=== PATIENT | female | born 1995 | race Caucasian/White ===

== ENCOUNTER 2020-10-05 06:39 | Inpatient (IN) | payer MEDICAID, SELFPAY ==
[2020-10-05 07:13] VITALS: BP 104/72; PULSE 128; RESP 18; TEMP 37.2; O2SAT 98; BMI 23.3
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
[2020-10-05 07:57] LABS: Basophils # 0.1 10^3/uL (0.0-0.1); Basophils % 0.8 %; Eosinophils # 0.1 10^3/uL (0.0-0.8); Eosinophils % 1.3 %; Hematocrit 44.4 % (37.0-47.0); Hemoglobin 15.1 g/dL (11.5-15.3); Lymphocytes # 2.3 10^3/uL (0.8-4.8); Lymphocytes % 27.9 %; Mean Corpuscular Hemoglobin 30.4 pg (28.0-34.0); Mean Corpuscular Volume 89.3 fL (81-99); Mean Platelet Volume 9.5 fL (7.4-10.4); Monocytes # 0.5 10^3/uL (0.2-0.9); Monocytes % 5.6 %; Neutrophils # 5.25 10^3/uL (1.8-7.7); Neutrophils % 63.8 %; Nucleated Red Blood Cells % 0 %; Platelet Count 273 10^3/cmm (130-400); Red Blood Count 4.97 10^6/uL (4.1-5.3); Red Cell Distribution Width 12.1 % (12.1-15.1); White Blood Count 8.2 10^3/uL (4.0-10.0)
[2020-10-05 08:09] LABS: HCG, Serum Qual Negative (Negative)
[2020-10-05 08:15] LABS: Alanine Aminotransferase 12 U/L (0-33); Alcohol Level 237 mg/dL (0-10); Alkaline Phosphatase 96 IU/L (35-105); Anion Gap 18.8 (5-19); Aspartate Amino Transferase 17 U/L (0-32); Blood Urea Nitrogen 4 mg/dL (6-20); Calcium 8.6 mg/dL (8.5-10.5); Carbon Dioxide 21 mmol/L (22-29); Chloride 108 mmol/L (98-107); Globulin 2.4 g/dL (1.3-4.6); Glomerular Filtration Rate 123.9 mL/min (90-130); Glucose 103 mg/dL (65-115); Osmolality Calculated 295 mOsm/kg (285-295); Potassium 3.8 mmol/L (3.5-5.1); Sodium 144 mmol/L (136-145); Total Bilirubin 0.2 mg/dL (0.15-1.2); Total Protein 7.4 g/dL (6.6-8.7)
[2020-10-05 08:16] LABS: Acetaminophen < 5.0 ug/mL (10-30); Salicylate < 0.3 mg/dL (3-10)
[2020-10-05] MEDS: acetaminophen 325 mg Tablet 650 MG PO ×2 (08:19→21:32)
[2020-10-05 08:20] LABS: Amphetamines Screen Urine Negative (Negative); Barbiturates Screen Urine Negative (Negative); Benzodiazepines Screen Urine Negative (Negative); Cocaine Screen Urine Negative (Negative); Opiate Screen Urine Negative (Negative); PCP Screen Urine Negative (Negative); THC Screen Urine Positive (Negative)
[2020-10-05 08:39] VITALS: BP 112/84; PULSE 111; O2SAT 96
[2020-10-05 10:05] VITALS: BP 120/82; PULSE 106; RESP 18; TEMP 36.8; O2SAT 96
--- NOTE | 2020-10-05 11:44 | PM.NHP ---
Providers/Chief Complaint Admitting Physician: Babatunde Godfrey MD Chief Complaint: DEPRESSION HPI NPU History of Present Illness Nati Cedillo is a 25 year old female Meds NPU Home Medications Medication Instructions Recorded Confirmed Last Taken Type examuoh-mrdzomhqtdkom-jxubbaox 2 tab PO PRN 10/05/20 10/05/20 Unknown History [Excedrin Migraine] Allergies Allergy/AdvReac Type Severity Reaction Status Date / Time nickel Allergy Intermediate rash Verified 10/05/20 07:49 PFSH NPU PFSH: Social History (Updated 08/12/20 @ 11:23 by Patrica Hammer LPN) Smoking and tobacco status: current every day smoker Vitals/I&O/Wt Last Vital Signs Temp 98.2 F 10/05/20 10:05 Pulse 106 H 10/05/20 10:05 Resp 18 10/05/20 10:05 BP 120/82 10/05/20 10:05 Pulse Ox 96 10/05/20 10:05 Weight last 48 hrs Weight 63.503 kg Data NPU : 10/05/20 07:29 10/05/20 07:29 Involuntary Hold Information 96 Hour Hold: 96 Hour Involuntary Admission: No Coding Level of Care Code Acute Occupational Health Nurse Supervisor for Morris Olivier
[2020-10-05 14:00] VITALS: TEMP 36.8
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
[2020-10-05] MEDS: sertraline 50 mg Tablet PO (17:12)
[2020-10-05 20:14] VITALS: BP 92/60; PULSE 81; RESP 18; TEMP 37.1; O2SAT 98
--- NOTE | 2020-10-05 21:35 | PC.NURSE ---
Patient requested Vistaril to help with anxiety. 50mg Vistaril PO given.
[2020-10-06 06:00] VITALS: BP 95/56; PULSE 63; RESP 16; TEMP 36.5; O2SAT 98
[2020-10-06] MEDS: folic acid 1 mg Tablet PO (08:48)
[2020-10-06] MEDS: thiamine 100 mg Tablet PO (08:48)
[2020-10-06] MEDS: sertraline 50 mg Tablet PO (08:48)
[2020-10-06] MEDS: multivitamin therapeutic Tablet 1 TAB PO (08:48)
--- NOTE | 2020-10-06 10:24 | PC.RESP ---
Smoking Cessation information sent to patient.
[2020-10-06 14:00] VITALS: BP 110/73; PULSE 68; RESP 16; TEMP 36.7; O2SAT 99
--- NOTE | 2020-10-06 14:18 | PM.NPN ---
Subjective NPU Subjective: Interval history: Patient says she is doing better today. She says she is not hearing her name being called nor is she seeing shadows. She says, I can think straight, not cloudy like it usually is. She says she is not thinking about the worst possible outcome. Instead she is looking for bright thoughts. She slept pretty good, is hungry, has low to decent energy, and more motivation than yesterday. She is also more hopeful. She denies alcohol cravings. She says she would drink to get rid of the voices and other bad thoughts. Now that there improved, she does not feel the need to drink. She denies suicidal ideation. Mental Status Exam MSE Comments: I met with the patient in the day room, where she was watching a [employer] movie. She is cooperative and eye contact is good. She is alert, attentive, and helpful. No psychomotor agitation or retardation. Mood is improved. Affect is brighter. Thought process is logical and goal-directed. Thought content: She denies suicidal and homicidal ideation. She denies auditory and visual hallucinations. No delusions are noted. Insight and judgment are improving. Impulse control is likely better too. Vitals/I&O/Wt Last Vital Signs Temp 97.9 F 10/07/20 14:00 Pulse 61 10/07/20 14:00 Resp 18 10/07/20 14:00 BP 109/72 10/07/20 14:00 Pulse Ox 98 10/07/20 14:00 Data NPU : 10/05/20 07:29 10/05/20 07:29 A&P Assessment and plan (1) Major psychotic depression, recurrent: Status: Acute (2) Suicidal ideation: Status: Acute (3) Acute alcohol intoxication: Status: Acute Qualifiers: Complication of substance-induced condition: uncomplicated Qualified Code(s): F10.920 - Alcohol use, unspecified with intoxication, uncomplicated (4) Alcohol use disorder, mild, abuse: Status: Acute Additional A&P Information This is a 25-year-old white with a 3-year history of depression, treated only with psychotherapy, which has not been that helpful. Depression is complicated by recent heavy alcohol use. 1. Start Zoloft 50 mg daily for depression. Patient understands risks, benefits, side effects, and alternatives and gives consent. 2. Continue every 15-minute checks for safety. 3. Encourage individual, group and milieu therapies. 4. Encourage sober living treatment after discharge at the highest level of care to which she is willing to commit. 5. [facility] protocol for alcohol withdrawal symptoms. Involuntary Hold Information 96 Hour Hold: 96 Hour Involuntary Admission: No Attestations NPU Medical Necessity Statement*: Psychiatric hospitalization is medically and has access to lethal means, for initiation of medication treatment, and for coordination for safe discharge. Patient will be in the hospital for over 2 midnights. Likely length of stay 2 to 4 days. Coding Level of Care Code Acute Dredge Pump Operator for Morris Zarated Diagnoses Major psychotic depression, recurrent F33.3 Suicidal ideation R45.851 Acute alcohol intoxication F10.920 Complication of substance-induced condition: uncomplicated Alcohol use disorder, mild, abuse F10.10
[2020-10-06] MEDS: ibuprofen 600 mg Tablet PO (14:41)
--- NOTE | 2020-10-06 14:44 | PC.NURSE ---
prn administered motrin 600mg for hand pain in pt. will continue to monitor.
[2020-10-06 22:00] VITALS: BP 119/83; PULSE 69; RESP 18; TEMP 36.8; O2SAT 98
[2020-10-06] MEDS: acetaminophen 325 mg Tablet 650 MG PO (22:03)
[2020-10-06] MEDS: hyDROXYzine 25 mg Capsule 50 MG PO (22:05)
[2020-10-07 06:00] VITALS: BP 103/69; PULSE 58; RESP 16; TEMP 36.9; O2SAT 98
[2020-10-07] MEDS: folic acid 1 mg Tablet PO (08:50)
[2020-10-07] MEDS: multivitamin therapeutic Tablet 1 TAB PO (08:50)
[2020-10-07] MEDS: sertraline 50 mg Tablet PO (08:50)
[2020-10-07] MEDS: thiamine 100 mg Tablet PO (08:50)
--- NOTE | 2020-10-07 13:25 | P.PN_ITS ---
Subjective NPU Subjective: Interval history: I met with the patient on the bench by the nurses station. She reports doing better. Her mood is improved and she says, I want to be alive. On the other hand, she did not get much sleep last night because her back was hurting, which is a chronic condition for her. Appetite is good, energy fair, motivation is low. But she is hopeful about the future. She denies auditory and visual hallucinations. No wish to or kill herself. She says that the Zoloft is causing a side effect, but she cannot describe it in words. It is tolerable at this point. Mental Status Exam MSE Comments: The patient is wearing hospital scrubs, makes good eye contact, and is cooperative. There is no psychomotor agitation or retardation. Speech is at a regular rate and rhythm. She is alert and oriented to person and situation. Attention is intact to exam. Memory is adequate for the exam. Mood is improved, and affect is somewhat irritable, due to her poor sleep last night. Thought process is logical and goal-directed. Thought content: She denies auditory visual hallucinations. There are no delusions noted. She has no suicidal or homicidal ideation. Insight and judgment are improving. Vitals/I&O/Wt Last Vital Signs Temp 97.9 F 10/07/20 14:00 Pulse 61 10/07/20 14:00 Resp 18 10/07/20 14:00 BP 109/72 10/07/20 14:00 Pulse Ox 98 10/07/20 14:00 Data NPU : 10/05/20 07:29 10/05/20 07:29 A&P Additional A&P Information Assessment and plan (1) Major psychotic depression, recurrent: (2) Suicidal ideation: (3) Acute alcohol intoxication: (4) Alcohol use disorder, mild, abuse: This is a 25-year-old white with a 3-year history of depression, treated only with psychotherapy, which has not been that helpful. Depression is complicated by recent heavy alcohol use. 1. Started Zoloft 50 mg daily for depression. No side effects. She feels it is helping already. 2. Continue every 15-minute checks for safety. 3. Encourage individual, group and milieu therapies. 4. Encourage sober living treatment after discharge at the highest level of care to which she is willing to commit. 5. CIWA protocol for alcohol withdrawal symptoms. No withdrawal symptoms. Involuntary Hold Information 96 Hour Hold: 96 Hour Involuntary Admission: No Attestations NPU Medical Necessity Statement*: Psychiatric hospitalization is medically and has access to lethal means, for initiation of medication treatment, and for coordination for safe discharge. Patient will be in the hospital for over 2 midnights. Likely length of stay 2 to 3 days. Coding Level of Care Code Acute Sweatband Separator for Morris Olivier
[2020-10-07 14:00] VITALS: BP 109/72; PULSE 61; RESP 18; TEMP 36.6; O2SAT 98
[2020-10-07 20:52] VITALS: BP 116/78; PULSE 80; RESP 16; TEMP 37.3; O2SAT 98
[2020-10-07] MEDS: ibuprofen 600 mg Tablet PO (20:54)
[2020-10-07] MEDS: trazodone 50 mg Tablet PO (20:55)
[2020-10-07] MEDS: hyDROXYzine 25 mg Capsule 50 MG PO (20:55)
--- NOTE | 2020-10-07 22:00 | PC.NURSE ---
Trazodone 50 mg and Vistaril 50 mg given for sleep and anxiety.
[2020-10-08 06:00] VITALS: BP 94/61; PULSE 89; RESP 15; TEMP 36.8; O2SAT 98
[2020-10-08] MEDS: thiamine 100 mg Tablet PO (08:05)
[2020-10-08] MEDS: folic acid 1 mg Tablet PO (08:05)
[2020-10-08] MEDS: sertraline 50 mg Tablet PO (08:05)
[2020-10-08] MEDS: multivitamin therapeutic Tablet 1 TAB PO (08:05)
[2020-10-08 14:00] VITALS: BP 92/63; PULSE 77; RESP 16; TEMP 36.7; O2SAT 98
--- NOTE | 2020-10-08 14:52 | PM.NPN ---
Subjective NPU Subjective: Interval history: I met with the patient in her room. She says she is finally beginning to feel like her old self. Mood is improved, and she denies feeling depressed or worried at this point. Her energy has not recovered yet, and is still described as fair. She does have more hope, and is looking forward to doing [id number] shopping for her son this coming weekend. She denies auditory and visual hallucinations. She denies suicidal and homicidal ideation. She has no alcohol cravings. She has no side effects from the new medication. Mental Status Exam MSE Comments: The patient is sitting in her bed, and makes good eye contact. She is cooperative. There is no psychomotor agitation or retardation. Speech is at a regular rate and rhythm. She is alert and oriented to person and situation. Attention is intact to exam. Memory is adequate for the exam. Mood is improved, and affect is brighter today. Thought process is logical and goal-directed. Thought content: She denies auditory visual hallucinations. There are no delusions noted. She has no suicidal or homicidal ideation. Insight and judgment are improving. Vitals/I&O/Wt Last Vital Signs Temp 98.0 F 10/08/20 14:00 Pulse 77 10/08/20 14:00 Resp 16 10/08/20 14:00 BP 92/63 10/08/20 14:00 Pulse Ox 98 10/08/20 14:00 Weight last 48 hrs Weight 63.503 kg Data NPU : 10/05/20 07:29 10/05/20 07:29 A&P Assessment and plan (1) Major psychotic depression, recurrent: Status: Acute (2) Alcohol use disorder, mild, abuse: Status: Acute (3) Suicidal ideation: Status: Acute (4) Acute alcohol intoxication: Status: Acute Qualifiers: Complication of substance-induced condition: uncomplicated Qualified Code(s): F10.920 - Alcohol use, unspecified with intoxication, uncomplicated Additional A&P Information This is a 25-year-old white with a 3-year history of depression, treated only with psychotherapy, which has not been that helpful. Depression is complicated by recent heavy alcohol use. 1. Started Zoloft 50 mg daily for depression. No side effects. She feels it is helping already. 2. Continue every 15-minute checks for safety. 3. Encourage individual, group and milieu therapies. 4. Encourage sober living treatment after discharge at the highest level of care to which she is willing to commit. 5. We have discontinued the CISC protocol. Involuntary Hold Information 96 Hour Hold: 96 Hour Involuntary Admission: No Attestations NPU Medical Necessity Statement*: Psychiatric hospitalization is medically and has access to lethal means, for initiation of medication treatment, and for coordination for safe discharge. Likely length of stay 1-2 days. Coding Level of Care Code Acute Typewriters Functional Tester for Morris Olivier Diagnoses Major psychotic depression, recurrent F33.3 Alcohol use disorder, mild, abuse F10.10 Suicidal ideation R45.851 Acute alcohol intoxication F10.920 Complication of substance-induced condition: uncomplicated
[2020-10-08] MEDS: acetaminophen 325 mg Tablet 650 MG PO (21:14)
[2020-10-08 22:00] VITALS: BP 108/69; PULSE 80; RESP 16; TEMP 36.4; O2SAT 98
[2020-10-09 06:00] VITALS: BP 102/69; PULSE 84; RESP 18; TEMP 36.8; O2SAT 98
[2020-10-09] MEDS: multivitamin therapeutic Tablet 1 TAB PO (08:04)
[2020-10-09] MEDS: thiamine 100 mg Tablet PO (08:04)
[2020-10-09] MEDS: folic acid 1 mg Tablet PO (08:04)
[2020-10-09] MEDS: sertraline 50 mg Tablet PO (08:04)
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
[2020-10-09 11:56] VITALS: BP 102/69; PULSE 84; RESP 18; TEMP 36.8; O2SAT 98
[2020-10-09 11:57] VITALS: BP 102/69; PULSE 84; RESP 18; TEMP 36.8; O2SAT 98
== END 2020-10-09 13:43 | disposition home or self-care (01) | DRG 885 ==
LOC: ER 08:44 → NP 09:15
PROVIDERS: Admitting Provider Psychiatry & Neurology Child & Adolescent Psychiatry; Emergency Provider Physician Assistant; Visit Provider Psychiatry & Neurology Child & Adolescent Psychiatry
DX: F33.9 Major depressive disorder, recurrent, unspecified (principal); R45.851 Suicidal ideations; F10.129 Alcohol abuse with intoxication, unspecified; F17.210 Nicotine dependence, cigarettes, uncomplicated; F12.10 Cannabis abuse, uncomplicated; Z81.8 Family history of other mental and behavioral disorders; Z56.0 Unemployment, unspecified; Z91.5 Personal history of self-harm
CPT/HCPCS: 73130; 80053; 80306; 80307; 84703; 85025; 99285

== ENCOUNTER → 2020-10-16 10:27 | Outpatient (BNVA) | payer MEDICAID, SELFPAY | PROVIDERS: Visit Provider Family Medicine | DX: M79.641 Pain in right hand (principal) | CPT/HCPCS: 73130 ==

== ENCOUNTER 2020-12-14 13:55 | Outpatient (CLI) | payer MEDICAID, SELFPAY ==
--- NOTE | 2020-12-14 14:02 | US_ITS ---
WS: [id number] ULTRASOUND PELVIS TECHNIQUE: Transvaginal. CLINICAL INFORMATION: PELVIC PAIN LMP: ? : No. COMPARISON: None. FINDINGS: Heterogeneous uterus Orientation: Retroflexed Size: 7.4 x 4.1 x 5.7 cm Masses: None. Cervix: Small amount of fluid or thickening along the endocervical canal Endometrium: Normal. Endometrium thickness: 0.15 cm. Adnexa: Multifollicular ovaries bilaterally. Right ovary size: 2.9 x 1.6 x 2.0 cm. Left ovary size: 3.3 x 1.4 x 2.2 cm. Free fluid: Trace Other findings: None. US/US transvaginal [id number] IMPRESSION: 1. Slightly heterogeneous retroflexed uterus with normal thickness endometrium . Heterogeneity can be seen with adenomyosis. 2. Endometrium measures 1.5 mm 3. Small amount of fluid or thickening along the endocervical canal 4. Ovaries are normal appearance. Normal vascularity. 5. Trace free fluid in the cul-de-sac.
== END 2020-12-14 13:56 | disposition home or self-care (01) ==
PROVIDERS: PCP Nurse Practitioner Family; Visit Provider Nurse Practitioner Family
DX: R10.2 Pelvic and perineal pain (principal)
CPT/HCPCS: 76830

== ENCOUNTER 2021-07-08 01:16 | Emergency (ER) | payer MEDICAID, SELFPAY ==
[2021-07-08 01:17] VITALS: BP 124/74; PULSE 74; RESP 18; TEMP 36.9; O2SAT 98; BMI 25.0
--- NOTE | 2021-07-08 01:57 | PC.NURSE ---
pt yelling wheres the doctor?whens he coming? pt put on her shoes and said she was leaving when doctor entered room
[2021-07-08 02:02] LABS: HCG Qualitative Urine. Negative (Negative)
--- NOTE | 2021-07-08 02:07 | ED.C_ITS ---
HPI - Psych General: Chief Complaint: Psychiatric Symptoms Stated Complaint: Depression Time Seen by Provider: 07/08/21 01:24 Source: patient History of Present Illness: Nati is a 26-year-old female with a history of depression. She notes she was placed on Latuda somewhat recently for depression which seemed to be helping. She notes the past couple of days she has felt more depressed. She is down because she does not have any friends she says. She roldan s not have anyone to talk to. She does not want to go to the neuropsychiatric unit, and she does not want to disappoint her mom. She made several abrasions to her right lateral thigh tonight. She has done this before. She maintains that this was not a suicide attempt at all. She was not having suicidal thoughts. She was doing this to distract herself from the pain of her depression. She notes that she only wants her thigh taken care of, and to go home. She admits to having 1 drink tonight, that may have worsened her depression. She denies hearing voices currently. She does not believe that her mother wants her to be hospitalized for depression either. She says her tetanus is up-to-date. MD complaint: feels depressed Onset (ago): day(s) Duration: constant History of same: Yes Relieving factors: none Exacerbating factors: alcohol Context: recent alcohol abuse (She only admits to 1 drink.) Associated psychiatric symptoms: depression Associated symptoms: Reports depression; Deny auditory hallucinations, visual hallucinations, homicidal ideation or suicidal ideation Treatments prior to arrival: none If self harm: admits thoughts of self harm (Only cutting) Review of Systems Const: Denies: fever(s) Eyes: Denies: change in vision ENMT: Denies: throat pain Card: Denies: chest pain or palpitations Resp: Denies: dyspnea, productive cough or non-productive cough GI: Denies: abdominal pain, vomiting or diarrhea Psych: Reports: anxiety and depression; Denies: visual hallucinations, auditory hallucinations, suicidal ideation or homicidal ideation [facility] ED PFSH: Social History Smoking and tobacco status: current every day smoker Alcohol intake: current Alcohol intake frequency: few times a month Alcohol type: beer, wine and hard liquor Last alcohol use date: 02/03/21 Lives independently: No Household members: family Marital status: Single Number of children: 1 service: No Current occupational status: unemployed Current gender identity: Female Special monique needs: No Physical Exam Const: GENERAL APPEARANCE: cooperative and well kempt HENMT: COMMON NORMALS: normocephalic, atraumatic and Normal external nose present HEAD & SCALP: normocephalic and atraumatic FACE & SINUS: normal facial exam and face symmetric NOSE: Normal external nose present and Normal nares present Eye: COMMON NORMALS: Equal, round and reactive pupils present and EOMs intact bilaterally PUPIL: Yes Equal, round and reactive pupils present Chest: COMMONS NORMALS: normal inspection of the chest Resp: COMMON NORMALS: normal respiratory effort, No use of accessory muscles and clear to auscultation bilaterally AUSCULTATION: clear to auscultation bilaterally Cardio: COMMON NORMALS: regular rate and regular rhythm RATE: regular rate RHYTHM: regular rhythm GI: COMMON NORMALS: Normal to inspection, nondistended, normoactive bowel sounds present Neuro: BRUCE COMA SCALE: document GCS findings [place] coma scale eye opening: Spontaneous Bruce coma scale verbal response: Orientated Bruce coma scale motor response: Obey commands Bruce coma scale total score: 15 SPEECH: speech normal Psych: COMMON NORMALS: Normal thought process present, cooperative and speech normal APPEARANCE: Yes well kempt ATTITUDE: Yes agitated (Initially, then improved) ACTIVITY/MOTOR BEHAVIOR: Yes appropriate eye contact SPEECH: Yes normal speech MOOD & AFFECT: Yes depressed mood and Yes Labile affect present (Initially then flow) THOUGHT PROCESS: Normal thought process present THOUGHT CONTENT: No Suicidality present, No Homicidality present and No Hallucination(s) present ATTENTION/CONCENTRATION: Yes attention grossly intact and Yes concentration grossly intact MEMORY/COGNITION: Yes memory grossly intact and Yes cognition grossly intact INSIGHT: Fair insight present (Psych) JUDGEMENT: Fair judgement present (Psych) Skin: NARRATIVE SKIN EXAM: Exam of the right thigh reveals roughly 16 linear abrasions over the lateral aspect. They are free of erythema, streaking, or drainage. There are 2 superficial for suturing. Course Vital Signs: Vital signs: Vital Signs Temperature 98.4 F 07/08/21 01:17 Pulse Rate 74 07/08/21 01:17 Respiratory Rate 18 07/08/21 01:17 Blood Pressure 124/74 07/08/21 01:17 Pulse Oximetry 98 07/08/21 01:17 [facility] - Psych Medical Decision Making 26-year-old female who maintains that she is not suicidal. She is not homicidal. She asks if she can please go home. She notes that her mother will help care for her and keep her safe. She has abraded her own right lateral thigh, as a distraction from pain and depression. She is rational. She promises me, that she will not commit further self-harm, that she is not having suicidal thoughts, that she is not hearing voices or seeing objects, and that she will seek outpatient follow-up. Her wounds are cleaned and dressed. She will be allowed discharge to the care of her mother, provided her mother is responsible to do so. Lab Data Laboratory Results HCG, Qual Negative (Negative) 07/08/21 01:45 Urine Color Yellow (Yellow) 07/08/21 01:45 Urine Appearance Clear (CLEAR) 07/08/21 01:45 Urine pH 7 (5-7) 07/08/21 01:45 Ur Specific [place] 1.005 (1.005-1.030) 07/08/21 01:45 Urine Protein Neg (Negative) 07/08/21 01:45 Urine Glucose (UA) Norm (Normal) 07/08/21 01:45 Urine Ketones Negative (Negative) 07/08/21 01:45 Urine Blood Neg (Negative) 07/08/21 01:45 Urine Nitrate Negative (Negative) 07/08/21 01:45 Urine Bilirubin Neg (Negative) 07/08/21 01:45 Urine Urobilinogen Norm mg/dL (Negative) 07/08/21 01:45 Ur Leukocyte Esterase Negative (Negative) 07/08/21 01:45 Urine Opiates Screen Negative ng/mL (Negative) 07/08/21 01:45 Ur Barbiturates Screen Negative ng/mL (Negative) 07/08/21 01:45 Ur Phencyclidine Scrn Negative ng/mL (Negative) 07/08/21 01:45 Ur Amphetamines Screen Negative ng/mL (Negative) 07/08/21 01:45 U Benzodiazepines Scrn Negative ng/mL (Negative) 07/08/21 01:45 Urine Cocaine Screen Negative ng/mL (Negative) 07/08/21 01:45 U Marijuana (THC) Screen Positive ng/mL (Negative) H 07/08/21 01:45 Discharge Plan Discharge Patient Disposition: Home Clinical Impression: Abrasion of right thigh Condition: Stable Prescriptions: No Action temazepam [Restoril] 30 mg capsule 30 mg PO .qhs Qty: 30 2RF escitalopram oxalate [Lexapro] 20 mg tablet 20 mg PO DAILY Qty: 30 3RF cephalexin 500 mg capsule 500 mg PO TID 10 Days Qty: 30 0RF Latuda 40 mg tablet 40 mg PO DAILY Qty: 30 3RF Rx Instructions: must administer with food (at least 350 calories) Excedrin Migraine 250-250-65 mg Tablet 2 tab PO PRN 0RF Discharge Orders: Discharge ED (Routine); Ordered 07/08/21 Ordered By: Cheikh Riddle Referrals: Lakeshia Lee FNP [Primary Care Provider] - 1-3 days Discharge Diet: Advance as tolerated Discharge Activity: Increase activity as tolerated Activity Restrictions/Additional Instructions: Please return immediately to the emergency room for any thoughts or wishes to harm your self or anyone else. Please follow-up with your doctor by phone on Friday, and let them know you were seen in the emergency department. They may wish further treatment for you. A case management order has been placed for you to receive follow-up with behavioral health care. Coding Level of Care Code ED Product Introduction Manager for Morris Olivier Exam Comprehensive
[2021-07-08] MEDS: LORazepam 1 mg Tablet PO (02:27)
[2021-07-08] MEDS: neomycin-poly-bacitracin oint 0.9 gm Pkt 3 APPLIC TOPICAL (02:27)
--- NOTE | 2021-07-08 02:38 | PC.NURSE ---
12 superficial scratches that were self inflicted cleaned and neosporin telfa wrapped with kerlix,pt tolerated well
[2021-07-08 02:47] LABS: Add Urine Microscopic? NO; Charge for UA Resulting for Rev
[2021-07-08 02:58] LABS: Amphetamines Screen Urine Negative (Negative); Barbiturates Screen Urine Negative (Negative); Benzodiazepines Screen Urine Negative (Negative); Cocaine Screen Urine Negative (Negative); Opiate Screen Urine Negative (Negative); PCP Screen Urine Negative (Negative); THC Screen Urine Positive (Negative)
[2021-07-08 03:00] LABS: Bilirubin Urine Neg (Negative); Blood Urine Neg (Negative); Glucose Urine UA Norm (Normal); Ketones Urine Negative (Negative); Leukocyte Esterase Urine Negative (Negative); Nitrate Urine Negative (Negative); Protein Urine Neg (Negative); Specific Gravity, Urine 1.005 (1.005-1.030); Urine Appearance Clear (CLEAR); Urine Color Yellow (Yellow); Urobilinogen Urine Norm (Negative); pH Urine 7 (5-7)
--- NOTE | 2021-07-08 03:10 | PC.NURSE ---
mom her to knot picker cloth pt. mom verbalized understanding of standing of staying with patient and keeping her safe, pt continues to deny she is SI
--- NOTE | 2021-07-10 16:03 | DCPLANNER ---
dice manager had message to speak with patient about getting services at [facility]. dice manager called patient at [phone], unable to speak with patient at this time and unable to leave a voicemail for patient. Voicemail box is not set up.
== END 2021-07-08 03:14 | disposition home or self-care (01) ==
PROVIDERS: Emergency Provider Emergency Medicine; PCP Nurse Practitioner Family
DX: S70.311A Abrasion, right thigh, initial encounter (principal); X78.9XXA Intentional self-harm by unspecified sharp object, initial encounter; F17.200 Nicotine dependence, unspecified, uncomplicated
CPT/HCPCS: 80306; 81003; 81025; 99283

== ENCOUNTER → 2021-08-23 12:29 | Outpatient (BNVA) | payer OTHER, SELFPAY | PROVIDERS: PCP Nurse Practitioner Family; Visit Provider Counselor Mental Health | DX: F10.10 Alcohol abuse, uncomplicated (principal); F33.3 Major depressive disorder, recurrent, severe with psychotic symptoms | CPT/HCPCS: 90832 ==

== ENCOUNTER 2022-10-21 09:14 | Outpatient (CLI) | payer MEDICAID, SELFPAY ==
--- NOTE | 2022-10-21 09:19 | MR_ITS ---
WS: [id number] MRI HEAD WITHOUT CONTRAST TECHNIQUE: Sagittal T1, T2 axial, T2 axial FLAIR, axial and coronal T1 images, axial susceptibility w eighted imaging, axial diffusion weighted images, and coronal T2 images were obtained. CLINICAL INFORMATION: ABNORMAL PROLACTIN COMPARISON: CT head 2019 FINDINGS: No evidence of restricted diffusion to suggest acute ischemia. Ventricular system and basal cisterns are patent. No suspicious intracranial signal normalities. Normal posterior fossa. Normal vascular fl ow voids at the skull base. No extra-axial fluid collections. No evidence of mass or mass effect. Par anasal sinuses and mastoid air cells are well aerated. Normal posterior nasopharynx. Visualized orbit s appear normal. No hemosiderin on susceptibility weighted images. Normal optic chiasm and pituitary infundibulum. Tem poral lobes and hippocampal formations are normal in appearance. Normal visualized pituitary. No evid ence of suprasellar mass. IMPRESSION: 1. No evidence of restricted diffusion to suggest acute ischemia. 2. No suspicious intracranial signal normalities. 3. No extra-axial fluid collections. No evidence of mass or mass effect. 4. Normal optic chiasm and pituitary infundibulum. No evidence of suprasellar mass. 5. No hemosiderin on the susceptibly weighted images. If continued concern regarding pituitary microadenoma, recommend MRI of the head without and with nikita olinium enhancement with pituitary protocol and dynamic pituitary imaging
== END 2022-10-21 09:15 | disposition home or self-care (01) ==
PROVIDERS: PCP Nurse Practitioner Family; Visit Provider Nurse Practitioner Family
DX: R94.7 Abnormal results of other endocrine function studies (principal)
CPT/HCPCS: 70551

== ENCOUNTER → 2024-02-20 16:19 | Outpatient (BNVA) | payer MEDICAID, SELFPAY | PROVIDERS: PCP Nurse Practitioner Family; Visit Provider Nurse Practitioner Family | DX: R05.9 Cough, unspecified (principal) | CPT/HCPCS: 87400; 87880 ==

== ENCOUNTER 2024-05-18 17:27 | Emergency (ER) | payer MEDICAID, SELFPAY ==
[2024-05-18 17:33] VITALS: BP 114/80; PULSE 92; RESP 18; TEMP 36.6; O2SAT 98; BMI 28.3
[2024-05-18 17:54] LABS: Bilirubin Urine Negative (Negative); Blood Urine Negative (Negative); Glucose Urine UA Negative (Normal); HCG Qualitative Urine. Negative (Negative); Ketones Urine Negative (Negative); Leukocyte Esterase Urine 1+ (Negative); Nitrate Urine Negative (Negative); Protein Urine Negative (Negative); Specific Gravity, Urine 1.005 (1.005-1.030); Urine Appearance Clear (CLEAR); Urine Color Yellow (Yellow); Urobilinogen Urine 0.2 mg/dL (Negative)
[2024-05-18 17:59] LABS: Add Urine Microscopic? YES; Bacteria Urine None Seen /hpf; RBC Urine 0-2 /hpf (0-2); Squamous Epithelial Cell Urine 0-5 /hpf (0-5)
[2024-05-18 18:02] LABS: Add Urine Culture? No
--- NOTE | 2024-05-18 18:07 | CTR_ITS ---
PROCEDURE INFORMATION: Exam: CT Abdomen And Pelvis With Contrast Exam date and time: 05/18/2024 6:38 PM Age: 28 years old Clinical indication: Abdominal pain; Localized; Right lower quadrant (rlq); History of uti's; Additional info: Rlq pain TECHNIQUE: Imaging protocol: Computed tomography of the abdomen and pelvis with contrast. Radiation optimization: All CT scans at this facility use at least one of these dose optimization techniques: automated exposure control; mA and/or kV adjustment per patient size (includes targeted exams where dose is matched to clinical indication); or iterative reconstruction. Contrast material: OMNIPAQUE 350; Contrast volume: 100 ml; Contrast route: INTRAVENOUS (IV); COMPARISON: US transvaginal [id number] 12/14/2020 2:15 PM RADIATION DOSE METRICS: Total DLP (mGy-cm): 589.44 FINDINGS: Liver: Normal. No mass. Gallbladder and biliary ducts: Normal. No calcified stones. No ductal dilation. Pancreas: Normal. No ductal dilation. Spleen: Normal. No splenomegaly. Adrenal glands: Normal. No mass. Kidneys and ureters: 1.3 cm right renal cortical cysts. Mild urothelial enhancement throughout the right ureter in the right renal pelvis. No hydronephrosis bilaterally. Stomach and bowel: Unremarkable. No obstruction. No mucosal thickening. Appendix: No evidence of appendicitis. Intraperitoneal space: Unremarkable. No free air. No significant fluid collection. Vasculature: Unremarkable. No abdominal aortic aneurysm. Lymph nodes: Unremarkable. No enlarged lymph nodes. Urinary bladder: Mild urinary bladder wall thickening with trace pericystic fat stranding. Reproductive: Unremarkable as visualized. Bones/joints: Unremarkable. No acute fracture. Soft tissues: Unremarkable. CT/CT abdomen pelvis w con* [id number] IMPRESSION: 1. Mild bladder wall thickening with trace pericystic fat stranding concerning for acute cystitis. Correlate with physical exam findings/urinalysis. 2. Mild urothelial enhancement along the right ureter and renal pelvis likely represents underlying infection/inflammation. COMMENTS: Consistent with the [employer]'s Incidental Findings Committee white paper (J Am Inna Radiol 2018): Any incidental renal lesion less than 1 cm or classified as too small to characterize, or any incidental cystic renal lesion characterized as simple-appearing, is likely benign. No follow-up imaging is recommended for these lesions per consensus recommendations based on imaging criteria.
--- NOTE | 2024-05-18 18:08 | W.ED.FEMALGU ---
HPI - Female Genitourinary General: Chief complaint: Urogenital-Female Stated complaint: blood in urine, pain when urinating Time Seen by Provider: 05/18/24 17:53 Source: patient Mode of arrival: ambulatory Limitations: no limitations History of Present Illness: 28-year-old female states been having abdominal pain along with some dysuria has been going on for last 2 days she has been having sharp pains suprapubic and right lower quadrant states pain is worse with palpation she denies any vomiting or diarrhea denies any fever she rates her pain a 4 out of 10 currently. Associated symptoms: Reports abdominal pain; Deny headache(s) or nausea Related Data Previous Rx's ?Medication ?Instructions ?Recorded escitalopram oxalate 20 mg tablet See Rx Instructions .Route 10/27/23 .COMPLEX #30 tabs lurasidone 40 mg tablet See Rx Instructions .Route 10/27/23 .COMPLEX #30 tabs prednisone 20 mg tablet 20 mg PO BID #10 tabs 02/20/24 cephalexin 500 mg capsule 500 mg PO TID 7 days #21 caps 05/18/24 Allergies Allergy/AdvReac Type Severity Reaction Status Date / Time nickel Allergy Intermediate rash Verified 07/11/21 10:57 Review of Systems Const: Denies: fever(s), chills, body aches or change in appetite ENMT: Denies: throat pain or dental pain Card: Denies: chest pain Resp: Denies: dyspnea GI: Reports: abdominal pain; Denies: nausea, vomiting or diarrhea : Reports: dysuria Musc: Denies: neck pain or back pain Skin/Breast: Denies: rash Neuro: Denies: headache(s) PFSH ED PFSH: Social History Smoking and tobacco/nicotine status: unknown if used tobacco/nicotine Alcohol intake: current Alcohol intake frequency: few times a month Alcohol type: beer, wine and hard liquor Substance/Drug Use: unknown Lives independently: No Household members: family Marital status: Single Number of children: 1 service: No Current occupational status: unemployed Current gender identity: Female Special monique needs: No Physical Exam Const: COMMON NORMALS: no acute distress, patient oriented x3 and healthy appearing HENMT: COMMON NORMALS: normocephalic and atraumatic HEAD & SCALP: normocephalic and atraumatic Eye: COMMON NORMALS: conjunctivae normal CONJUNCTIVA: Yes conjunctivae normal Neck/C-Spine: COMMON NORMALS: full ROM and supple Chest: COMMONS NORMALS: normal inspection of the chest Resp: COMMON NORMALS: normal respiratory effort, No retractions, No use of accessory muscles and clear to auscultation bilaterally AUSCULTATION: clear to auscultation bilaterally Cardio: COMMON NORMALS: regular rate, regular rhythm and No murmurs present (Cardio) RATE: regular rate RHYTHM: regular rhythm GI: COMMON NORMALS: Normal to inspection, nondistended, normoactive bowel sounds present, Soft to palpation and no masses PALPATION: Yes Soft to palpation and Yes Tenderness to palpation present (GI) Details: RLQ Extremity: COMMON NORMALS: normal to inspection and full ROM Neuro: COMMON NORMALS: patient oriented x3, moves all extremities and no focal motor deficits Psych: COMMON NORMALS: mental status grossly normal, Normal thought process present and cooperative THOUGHT PROCESS: Normal thought process present Skin: COMMON NORMALS: no rashes or lesions noted and no wounds GENERAL SKIN EXAM: no rashes or lesions noted Course Vital Signs: Vital signs: Vital Signs Temperature 97.9 F 05/18/24 17:33 Pulse Rate 92 05/18/24 17:33 Respiratory Rate 18 05/18/24 17:33 Blood Pressure 114/80 05/18/24 17:33 Pulse Oximetry 98 05/18/24 17:33 Oxygen Delivery Me thod Room Air 05/18/24 17:33 MDM - Female Medical Decision Making Patient presents here with acute cystitis CT blood work here are normal no signs of appendicitis will start her on antibiotics she stable for discharge follow-up with PCP return if worsening. Medical Records I reviewed the patient's medical records. Lab Data I reviewed the patient's lab results. 05/18/24 18:22 05/18/24 18:22 Radiology Impressions Abdomen/Pelvis CT 05/18/24 18:07 IMPRESSION: 1. Mild bladder wall thickening with trace pericystic fat stranding concerning for acute cystitis. Correlate with physical exam findings/urinalysis. 2. Mild urothelial enhancement along the right ureter and renal pelvis likely represents underlying infection/inflammation. COMMENTS: Consistent with the [employer]'s Incidental Findings Committee white paper (J Am Inna Radiol 2018): Any incidental renal lesion less than 1 cm or classified as too small to characterize, or any incidental cystic renal lesion characterized as simple-appearing, is likely benign. No follow-up imaging is recommended for these lesions per consensus recommendations based on imaging criteria. Laboratory Results WBC 11.64 10^3/uL (3.29-11.43) H 05/18/24 18:22 RBC 4.13 10^6/uL (3.85-5.65) 05/18/24 18:22 Hgb 12.60 g/dL (11.27-16.99) 05/18/24 18:22 Hct 38.5 % (36-47) 05/18/24 18:22 MCV 93.2 fl (85-98) 05/18/24 18:22 MCH 30.5 pg (27-33) 05/18/24 18: MCHC 32.7 g/dL (30-55) 05/18/24 18:22 RDW 12.6 % (12.1-15.1) 05/18/24 18:22 Plt Count 254 10^3/cmm (157-399) 05/18/24 18:22 MPV 9.2 fL (7.4-10.4) 05/18/24 18:22 Neut % (Auto) 70.0 % 05/18/24 18:22 Lymph % (Auto) 21.8 % 05/18/24 18:22 [place] % (Auto) 5.5 % 05/18/24 18:22 Eos % (Auto) 1.7 % 05/18/24 18:22 Baso % (Auto) 0.5 % 05/18/24 18:22 Neut # (Auto) 8.14 10^3/uL (1.8-7.7) H 05/18/24 18:22 Lymph # (Auto) 2.5 10^3/uL (0.8-4.8) 05/18/24 18:22 [place] # (Auto) 0.6 10^3/uL (0.2-0.9) 05/18/24 18:22 Eos # (Auto) 0.2 10^3/uL (0.0-0.8) 05/18/24 18:22 Baso # (Auto) 0.1 10^3/uL (0.0-0.1) 05/18/24 18:22 Nucleated RBC % (auto) 0 % 05/18/24 18:22 Nucleated RBCs # 0.0 /100WBC 05/18/24 18:22 Sodium 141 mmol/L (136-145) 05/18/24 18:22 Potassium 3.4 mmol/L (3.5-5.1) L 05/18/24 18:22 Chloride 106 mmol/L (98-107) 05/18/24 18:22 Carbon Dioxide 23 mmol/L (22-29) 05/18/24 18:22 Anion Gap 15.4 (5-19) 05/18/24 18:22 BUN 5 mg/dL (6-20) L 05/18/24 18:22 Creatinine 0.7 mg/dL (0.5-0.9) 05/18/24 18:22 GFR Calculation 101.1 mL/min (90-130) 05/18/24 18:22 Glucose 104 mg/dL (65-115) 05/18/24 18:22 Calculated Osmolality 290 mOsm/kg (285-295) 05/18/24 18:22 Calcium 8.8 mg/dL (8.5-10.5) 05/18/24 18:22 Total Bilirubin 0.2 mg/dL (0.15-1.2) 05/18/24 18:22 AST 16 U/L (0-32) 05/18/24 18:22 ALT 18 U/L (0-33) 05/18/24 18:22 Alkaline Phosphatase 99 U/L (35-105) 05/18/24 18:22 Total Protein 6.9 g/dL (6.6-8.7) 05/18/24 18:22 Albumin 4.2 g/dL (3.5-5.2) 05/18/24 18:22 Globulin 2.7 g/dL (1.3-4.6) 05/18/24 18:22 Lipase 29 U/L (13-60) 05/18/24 18:22 HCG, Qual Negative (Negative) 05/18/24 17:28 Urine Color Yellow (Yellow) 05/18/24 17:28 Urine Appearance Clear (CLEAR) 05/18/24 17:28 Urine pH 6.0 (5-7) 05/18/24 17:28 Ur Specific [place] 1.005 (1.005-1.030) 05/18/24 17:28 Urine Protein Negative (Negative) 05/18/24 17:28 Urine Glucose (UA) Negative (Normal) 05/18/24 17:28 Urine Ketones Negative (Negative) 05/18/24 17:28 Urine Blood Negative (Negative) 05/18/24 17:28 Urine Nitrate Negative (Negative) 05/18/24 17:28 Urine Bilirubin Negative (Negative) 05/18/24 17:28 Urine Urobilinogen 0.2 mg/dL (Negative) 05/18/24 17:28 Ur Leukocyte Esterase 1+ (Negative) A 05/18/24 17:28 Urine RBC 0-2 /hpf (0-2) 05/18/24 17:28 Urine WBC 11-20 /hpf (0-5) H 05/18/24 17:28 Ur Squamous Epith Cells 0-5 /hpf (0-5) 05/18/24 17:28 Amorphous Sediment Not Reportable 05/18/24 17:28 Urine Bacteria None seen /hpf (NONE) 05/18/24 17:28 Hyaline Casts 0.40 /lpf 05/18/24 17:28 All radiology interpretation(s) finalized by discharge Discharge Plan Discharge Patient Disposition: Home Clinical Impression: Urinary tract infection Condition: Stable Prescriptions: New cephalexin 500 mg capsule 500 mg PO TID 7 Days Qty: 21 0RF No Action prednisone 20 mg tablet 20 mg PO BID Qty: 10 0RF escitalopram oxalate 20 mg tablet See Rx Instructions .ROUTE .COMPLEX Qty: 30 2RF Dose Instruction: Take 1 tablet by mouth once daily Rx Instructions: Take 1 tablet by mouth once daily lurasidone 40 mg tablet See Rx Instructions .ROUTE .COMPLEX Qty: 30 2RF Dose Instruction: TAKE 1 TABLET BY MOUTH ONCE DAILY WITH FOOD (AT LEAST 350 CALORIES) Rx Instructions: TAKE 1 TABLET BY MOUTH ONCE DAILY WITH FOOD (AT LEAST 350 CALORIES) Discharge Orders: Discharge ED (Routine); Ordered 05/18/24 Ordered By: Katelyn Farrell Referrals: Lakeshia Lee FNP [Primary Care Provider] - 4-7 days Discharge Diet: Advance as tolerated Discharge Activity: Resume usual activity Patient Instructions: Urinary Tract Infection in Women (ED) Print Language: Citizen Of [place] Coding Level of Care Code 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
[2024-05-18 18:29] LABS: Basophils # 0.1 10^3/uL (0.0-0.1); Basophils % 0.5 %; Eosinophils # 0.2 10^3/uL (0.0-0.8); Eosinophils % 1.7 %; Hematocrit 38.5 % (36-47); Lymphocytes # 2.5 10^3/uL (0.8-4.8); Lymphocytes % 21.8 %; Mean Corpuscular HGB Conc 32.7 g/dL (30-55); Mean Corpuscular Hemoglobin 30.5 pg (27-33); Mean Corpuscular Volume 93.2 fl (85-98); Mean Platelet Volume 9.2 fL (7.4-10.4); Monocytes # 0.6 10^3/uL (0.2-0.9); Monocytes % 5.5 %; Neutrophils # 8.14 10^3/uL (1.8-7.7); Nucleated Red Blood Cells % 0 %; Platelet Count 254 10^3/cmm (157-399); Red Blood Count 4.13 10^6/uL (3.85-5.65); Red Cell Distribution Width 12.6 % (12.1-15.1); White Blood Count 11.64 10^3/uL (3.29-11.43)
[2024-05-18] MEDS: iohexol 350 mg/mL 500 mL Btl (per mL) IV (18:42)
[2024-05-18 18:52] LABS: Alanine Aminotransferase 18 U/L (0-33); Albumin Level 4.2 g/dL (3.5-5.2); Alkaline Phosphatase 99 U/L (35-105); Anion Gap 15.4 (5-19); Aspartate Amino Transferase 16 U/L (0-32); Blood Urea Nitrogen 5 mg/dL (6-20); Calcium 8.8 mg/dL (8.5-10.5); Carbon Dioxide 23 mmol/L (22-29); Chloride 106 mmol/L (98-107); Creatinine Clr Calc Pharmacy 125.0556; Globulin 2.7 g/dL (1.3-4.6); Glomerular Filtration Rate 101.1 mL/min (90-130); Glucose 104 mg/dL (65-115); Lipase 29 U/L (13-60); Osmolality Calculated 290 mOsm/kg (285-295); Potassium 3.4 mmol/L (3.5-5.1); Sodium 141 mmol/L (136-145); Total Bilirubin 0.2 mg/dL (0.15-1.2); Total Protein 6.9 g/dL (6.6-8.7)
[2024-05-18] MEDS: cefTRIAXone 1,000 mg SDV 1000 MG IVP (19:46)
[2024-05-18 20:03] VITALS: BP 122/81; PULSE 96; O2SAT 99
== END 2024-05-18 20:04 | disposition home or self-care (01) ==
PROVIDERS: Emergency Provider Emergency Medicine; PCP Nurse Practitioner Family
DX: N39.0 Urinary tract infection, site not specified (principal)
CPT/HCPCS: 74177; 80053; 81001; 81025; 83690; 85025; 96374; 99285; J0696

== ENCOUNTER 2024-05-28 22:58 | Emergency (ER) | payer MEDICAID, SELFPAY ==
[2024-05-28 23:36] LABS: Basophils # 0.1 10^3/uL (0.0-0.1); Basophils % 0.6 %; Eosinophils # 0.1 10^3/uL (0.0-0.8); Eosinophils % 0.9 %; Hematocrit 42.4 % (36-47); Lymphocytes # 3.2 10^3/uL (0.8-4.8); Lymphocytes % 28.7 %; Mean Corpuscular HGB Conc 33.3 g/dL (30-55); Mean Corpuscular Hemoglobin 31.3 pg (27-33); Mean Platelet Volume 9.2 fL (7.4-10.4); Monocytes # 0.9 10^3/uL (0.2-0.9); Neutrophils # 6.88 10^3/uL (1.8-7.7); Neutrophils % 61.4 %; Nucleated Red Blood Cells % 0 %; Platelet Count 272 10^3/cmm (157-399); Red Blood Count 4.51 10^6/uL (3.85-5.65); Red Cell Distribution Width 12.8 % (12.1-15.1); White Blood Count 11.19 10^3/uL (3.29-11.43)
[2024-05-28 23:46] VITALS: PULSE 110; RESP 20; TEMP 36.7; O2SAT 96
[2024-05-28 23:50] LABS: Anion Gap 16.4 (5-19); Blood Urea Nitrogen 4 mg/dL (6-20); Calcium 8.8 mg/dL (8.5-10.5); Carbon Dioxide 23 mmol/L (22-29); Chloride 103 mmol/L (98-107); Creatinine Clr Calc Pharmacy 125.7531; Glomerular Filtration Rate 101.1 mL/min (90-130); Glucose 118 mg/dL (65-115); Osmolality Calculated 286 mOsm/kg (285-295); Potassium 3.4 mmol/L (3.5-5.1); Sodium 139 mmol/L (136-145)
[2024-05-28 23:55] LABS: Bilirubin Urine Negative (Negative); Blood Urine 1+ (Negative); Glucose Urine UA Negative (Normal); Ketones Urine Negative (Negative); Leukocyte Esterase Urine 2+ (Negative); Nitrate Urine Negative (Negative); Protein Urine 3+ (Negative); Specific Gravity, Urine 1.014 (1.005-1.030); Urine Appearance Cloudy (CLEAR); Urine Color Yellow (Yellow); pH Urine 8.5 (5-7)
[2024-05-28 23:57] LABS: HCG Qualitative Urine. Negative (Negative)
[2024-05-28 23:59] LABS: Add Urine Microscopic? YES; Bacteria Urine Trace /hpf; Hyaline Casts Urine 1.65 /lpf; RBC Urine 21-50 /hpf (0-2); Squamous Epithelial Cell Urine 0-5 /hpf (0-5); WBC Urine >100 /hpf (0-5)
[2024-05-29 00:02] LABS: Add Urine Culture? Yes
--- NOTE | 2024-05-29 01:36 | ED_ITS ---
HPI - Female Genitourinary 2 General: Chief complaint: Urogenital-Female Stated complaint: need ot pee cant Time Seen by Provider: 05/29/24 01:24 Source: patient Mode of arrival: ambulatory Limitations: no limitations History of Present Illness: Lower abdominal pain, recently on antibiotics for UTI and to them as instructed. Was prescribed them from a ER visit here. Patient when she was better for 3 days and then the pain came back and is worse this time. New symptom started today. Pain is moderate to severe. Related Data Previous Rx's ?Medication ?Instructions ?Recorded escitalopram oxalate 20 mg tablet See Rx Instructions .Route 10/27/23 .COMPLEX #30 tabs lurasidone 40 mg tablet See Rx Instructions .Route 0 10/27/23 .COMPLEX #30 tabs prednisone 20 mg tablet 20 mg PO BID #10 tabs ciprofloxacin HCl 500 mg tablet 500 mg PO BID 5 days # 10 tabs 05/29/24 (Cipro) phenazopyridine 200 mg tablet 200 mg PO TID PRN pain 6 doses #6 05/29/24 (Pyridium) tabs Allergies Allergy/AdvReac Type Severity Reaction Status Date / Time nickel Allergy Intermediate rash Verified 07/11/21 10:57 Review of Systems 2 General: Reports: 10 or more systems reviewed and unremarkable except in HPI and below PFSH ED 2 PFSH: Social History Smoking and tobacco/nicotine status: unknown if used tobacco/nicotine Alcohol intake: current Alcohol intake frequency: few times a month Alcohol type: beer, wine and hard liquor Substance/Drug Use: unknown Lives independently: No Household members: family Marital status: Single Number of children: 1 service: No Current occupational status: unemployed Current gender identity: Female Special monique needs: No Physical Exam 2 Const: COMMON NORMALS: no acute distress, average body habitus, patient oriented x3, healthy appearing, alert and well nourished GENERAL APPEARANCE: well kempt and well developed HENMT: COMMON NORMALS: normocephalic, atraumatic, external ears normal and moist oral mucous membranes HEAD & SCALP: normocephalic and atraumatic E XTERNAL EAR: Yes external ears normal Eye: COMMON NORMALS: Equal, round and reactive pupils present, EOMs intact bilaterally and conjunctivae normal CONJUNCTIVA: Yes conjunctivae normal P UPIL: Yes Equal, round and reactive pupils present Neck/C-Spine: COMMON NORMALS: full ROM, no lymphadenopathy and supple Chest: CHEST: Yes Symmetrical chest wall rise and No Surgical scars present (Chest) Resp: COMMON NORMALS: normal respiratory effort, No retractions, No use of accessory muscles and clear to auscultation bilaterally AUSCULTATION: clear to auscultation bilaterally Cardio: COMMON NORMALS: regular rate, regular rhythm, S1 normal heart sound present, S2 normal heart sound present, No gallops present (Cardio), No clicks present (Cardio), No murmurs present (Cardio) and No rub (Cardio) RATE: r egular rate RHYTHM: regular rhythm HEART SOUNDS: S1 normal heart sound present, S2 normal heart sound present and no murmurs PERIPHERAL PULSES: o ther (Radial pulses 2+ and symmetric) GI: COMMON NORMALS: Soft to palpation, non-tender and no masses INSPECTION: No abdominal distension PALPATION: Yes Soft to palpation, Yes Tenderness to palpation present (GI) (Suprapubic), Yes Guarding due to palpation present (GI) (Suprapubic) and No Rebound tenderness present : COMMON NORMALS: Yes no CVA tenderness BLADDER/KIDNEY EXAM: Yes no CVA tenderness Back/Pelvis: COMMON NORMALS: no CVA tenderness Extremity: COMMON NORMALS: normal to inspection, full ROM, capillary refill normal and no clubbing, cyanosis or edema Neuro: COMMON NORMALS: patient oriented x3 SENSORIUM/ORIENTATION: Yes alert Psych: APPEARANCE: Yes well kempt Skin: COMMON NORMALS: no rashes or lesions noted, no wounds, turgor normal and no jaundice GENERAL SKIN EXAM: no rashes or lesions noted and turgor normal Course 2 Vital Signs: Vital signs: Vital Signs Temperature 98.1 F 05/28/24 23:46 Pulse Rate 110 H 05/28/24 23:46 Respiratory Rate 20 H 05/28/24 23:46 Pulse Oximetry 96 05/28/24 23:46 Oxygen Delivery Me thod Room Air 05/28/24 23:46 MDM - Female Medical Decision Making Patient fell Keflex, having continued lower pain. She was feeling better about 3 days and then it came back. Patient for she took the antibiotics as instructed. Will start her on ciprofloxacin, give her Rocephin Toradol and Pyridium here in the ER. Cipro and Pyridium for home. Labs unremarkable except for UA with infection. Sending GC if possible. Medical Records I reviewed the patient's medical records. Lab Data I reviewed the patient's lab results. 05/28/24 23:28 05/28/24: Laboratory Results WBC 11.19 10^3/uL (3.29-11.43) 05/28/24: RBC 4.51 10^6/uL (3.85-5.65) 05/28/24: Hgb 14.10 g/dL (11.27-16.99) 05/28/24: Hct 42.4 % (36-47) 05/28/24: MCV 94.0 fl (85-98) 05/28/24: MCH 31.3 pg (27-33) 05/28/24: MCHC 33.3 g/dL (30-55) 05/28/24: RDW 12.8 % (12.1-15.1) 05/28/24: Plt Count 272 10^3/cmm (157-399) 05/28/24: MPV 9.2 fL (7.4-10.4) 05/28/24: Neut % (Auto) 61.4 % 05/28/24: Lymph % (Auto) 28.7 % 05/28/24: [place] % (Auto) 8.0 % 05/28/24: Eos % (Auto) 0.9 % 05/28/24: Baso % (Auto) 0.6 % 05/28/24: Neut # (Auto) 6.88 10^3/uL (1.8-7.7) 05/28/24: Lymph # (Auto) 3.2 10^3/uL (0.8-4.8) 05/28/24: [place] # (Auto) 0.9 10^3/uL (0.2-0.9) 05/28/24: Eos # (Auto) 0.1 10^3/uL (0.0-0.8) 05/28/24: Baso # (Auto) 0.1 10^3/uL (0.0-0.1) 05/28/24 23:28 Nucleated RBC % (auto) 0 % 05/28/24 23: Nucleated RBCs # 0.0 /100WBC 05/28/24 23:28 Sodium 139 mmol/L (136-145) 05/28/24 23:28 Potassium 3.4 mmol/L (3.5-5.1) L 05/28/24 23:28 Chloride 103 mmol/L (98-107) 05/28/24 23:28 Carbon Dioxide 23 mmol/L (22-29) 05/28/24 23:28 Anion Gap 16.4 (5-19) 05/28/24 23:28 BUN 4 mg/dL (6-20) L 05/28/24 23:28 Creatinine 0.7 mg/dL (0.5-0.9) 05/28/24 23:28 GFR Calculation 101.1 mL/min (90-130) 05/28/24 23:28 Glucose 118 mg/dL (65-115) H 05/28/24 23:28 Calculated Osmolality 286 mOsm/kg (285-295) 05/28/24 23: Calcium 8.8 mg/dL (8.5-10.5) 05/28/24 23:28 HCG, Qual Negative (Negative) 05/28/24 23:48 Urine Color Yellow (Yellow) 05/28/24 23:48 Urine Appearance Cloudy (CLEAR) A 05/28/24 23:48 Urine pH 8.5 (5-7) A 05/28/24 23:48 Ur Specific [place] 1.014 (1.005-1.030) 05/28/24 23:48 Urine Protein 3+ (Negative) A 05/28/24 23:48 Urine Glucose (UA) Negative (Normal) 05/28/24 23:48 Urine Ketones Negative (Negative) 05/28/24 23:48 Urine Blood 1+ (Negative) A 05/28/24 23:48 Urine Nitrate Negative (Negative) 05/28/24 23:48 Urine Bilirubin Negative (Negative) 05/28/24 23:48 Urine Urobilinogen 1.0 mg/dL (Negative) 05/28/24 23:48 Ur Leukocyte Esterase 2+ (Negative) A 05/28/24 23:48 Urine RBC 21-50 /hpf (0-2) H 05/28/24 23:48 Urine WBC >100 /hpf (0-5) H 05/28/24 23:48 Ur Squamous Epith Cells 0-5 /hpf (0-5) 05/28/24 23:48 Amorphous Sediment Not Reportable 05/28/24 23:48 Urine Bacteria Trace /hpf (NONE) 05/28/24 23:48 Hyaline Casts 1.65 /lpf 05/28/24 23:48 C. trachomatis (PCR) Not detected 05/28/24 23:48 N. gonorrhoeae (PCR) Not detected 05/28/24 23:48 No radiology studies performed this visit Discharge Plan Discharge Patient Disposition: Home Clinical Impression: Pelvic pain Urinary tract infection Qualifiers: Urinary tract infection type: acute cystitis Hematuria presence: without hematuria Qualified Code(s): N30.00 - Acute cystitis without hematuria Condition: Stable Prescriptions: New ciprofloxacin HCl [Cipro] 500 mg tablet 500 mg PO BID 5 Days Qty: 10 0RF phenazopyridine [Pyridium] 200 mg tablet 200 mg PO TID PRN (Reason: pain) Qty: 6 0RF No Action prednisone 20 mg tablet 20 mg PO BID Qty: 10 0RF escitalopram oxalate 20 mg tablet See Rx Instructions .ROUTE .COMPLEX Qty: 30 2RF Dose Instruction: Take 1 tablet by mouth once daily Rx Instructions: Take 1 tablet by mouth once daily lurasidone 40 mg tablet See Rx Instructions .ROUTE .COMPLEX Qty: 30 2RF Dose Instruction: TAKE 1 TABLET BY MOUTH ONCE DAILY WITH FOOD (AT LEAST 350 CALORIES) Rx Instructions: TAKE 1 TABLET BY MOUTH ONCE DAILY WITH FOOD (AT LEAST 350 CALORIES) Discharge Orders: Discharge ED (Routine); Ordered 05/29/24 Ordered By: Fred Curiel Referrals: Lakeshia Lee FNP [Primary Care Provider] - Patient Instructions: Urinary Tract Infection in Women (ED) Print Language: Chinese Coding Level of Care Code 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
[2024-05-29] MEDS: cefTRIAXone 1,000 MG in water for injection-sterile 2.1 ML 2.1 MG IM (01:57)
[2024-05-29] MEDS: phenazopyridine 100 mg Tablet 200 MG PO (01:58)
[2024-05-29] MEDS: ketorolac 30 mg/mL INJ IM (01:58)
[2024-05-29 03:35] LABS: Chlamydia Trachomatis NOT DETECTED; Neisseria Gonorrhea NOT DETECTED
== END 2024-05-29 02:00 | disposition home or self-care (01) ==
PROVIDERS: Emergency Provider Emergency Medicine; PCP Nurse Practitioner Family
DX: R10.2 Pelvic and perineal pain (principal); N30.00 Acute cystitis without hematuria
CPT/HCPCS: 36415; 80048; 81001; 81025; 85025; 87077; 87086; 87186; 87491; 87591; 96372; 99284; J0696; J1885; J9999

== ENCOUNTER → 2024-06-16 12:01 | Outpatient (BNVA) | payer MEDICAID, SELFPAY | PROVIDERS: PCP Nurse Practitioner Family; Visit Provider Nurse Practitioner Women's Health | DX: N91.2 Amenorrhea, unspecified (principal); Z01.419 Encounter for gynecological examination (general) (routine) without abnormal findings; Z32.01 Encounter for pregnancy test, result positive | CPT/HCPCS: 82306; 82670; 83001; 83002; 83036; 83520; 83525; 84402; 84403; 84443; 84702; 85025 ==

== ENCOUNTER → 2024-07-01 12:26 | Outpatient (BNVA) | payer MEDICAID, SELFPAY | PROVIDERS: PCP Nurse Practitioner Family; Visit Provider Nurse Practitioner Women's Health | DX: N92.6 Irregular menstruation, unspecified (principal) | CPT/HCPCS: 76830 ==

== ENCOUNTER 2025-01-12 11:58 | Emergency (ER) | payer MEDICAID, SELFPAY ==
[2025-01-12 12:15] VITALS: BP 127/86; PULSE 69; RESP 17; TEMP 37.1; O2SAT 99; BMI 25.0
[2025-01-12 14:33] LABS: Hematocrit 46.8 % (36-47); Hemoglobin 15.70 g/dL (11.27-16.99); Mean Corpuscular HGB Conc 33.5 g/dL (30-55); Mean Corpuscular Hemoglobin 31.1 pg (27-33); Mean Corpuscular Volume 92.7 fl (85-98); Nucleated Red Blood Cells % 0 %; Platelet Count 307 10^3/cmm (157-399); Red Blood Count 5.05 10^6/uL (3.85-5.65); White Blood Count 12.28 10^3/uL (3.29-11.43)
[2025-01-12 14:47] LABS: HCG, Serum Qual Negative (Negative)
[2025-01-12 14:51] LABS: Alanine Aminotransferase 26 U/L (0-33); Albumin Level 4.8 g/dL (3.5-5.2); Alkaline Phosphatase 75 U/L (35-105); Anion Gap 17.6 (5-19); Aspartate Amino Transferase 28 U/L (0-32); Blood Urea Nitrogen 11 mg/dL (6-20); Calcium 9.2 mg/dL (8.5-10.5); Carbon Dioxide 22 mmol/L (22-29); Chloride 103 mmol/L (98-107); Creatinine Clr Calc Pharmacy 102.4126; Globulin 2.9 g/dL (1.3-4.6); Glucose 85 mg/dL (65-115); Osmolality Calculated 287 mOsm/kg (285-295); Potassium 3.6 mmol/L (3.5-5.1); Sodium 139 mmol/L (136-145); Total Protein 7.7 g/dL (6.6-8.7)
--- NOTE | 2025-01-12 14:53 | CTR_ITS ---
PROCEDURE INFORMATION: Exam: CT Head Without Contrast Exam date and time: 01/12/2025 3:33 PM Age: 29 years old Clinical indication: Pain; Headache; PT reports dizziness, nausea, lower abd/pelvis cramping x2 months. PT states not , had period last month. ; Additional info: Dizzy headache TECHNIQUE: Imaging protocol: Computed tomography of the head without contrast. Radiation optimization: All CT scans at this facility use at least one of these dose optimization techniques: automated exposure control; mA and/or kV adjustment per patient size (includes targeted exams where dose is matched to clinical indication); or iterative reconstruction. COMPARISON: MR head wo con* [id number] 10/21/2022 9:56 AM RADIATION DOSE METRICS: Total DLP (mGy-cm): 1139.9 FINDINGS: Brain: Normal. No hemorrhage. Unremarkable white matter. No mass effect. Cerebral ventricles: No ventriculomegaly. Paranasal sinuses: Visualized sinuses are unremarkable. No fluid levels. Mastoid air cells: Visualized mastoid air cells are well aerated. Bones: Unremarkable. No acute fracture. Soft tissues: Unremarkable. CT/CT head wo con* [id number] IMPRESSION: No acute intracranial abnormality.
--- NOTE | 2025-01-12 15:03 | W.ED.GENADLT ---
HPI - General Adult General: Chief complaint: General Medical Stated complaint: dizzy, n/v/d, off and on for 2 months Time Seen by Provider: 01/12/25 14:27 Source: patient Mode of arrival: ambulatory Limitations: no limitations History of Present Illness: Patient is a 29-year-old female with past medical history of schizophrenia and anxiety and depression presenting to the emergency department for dizziness for the past couple of months. She states that earlier this year she struck her head but did not seek evaluation that time, she thinks this has something to do with her dizziness. She also notes frequent headaches. Dizziness has been constant since onset, worse with standing and ambulation, and describes it as both lightheadedness and room spinning dizziness. She notes intermittent nausea and abdominal cramping, states that she is not and she just had her menstrual cycle. She has not taken any medications for her symptoms, does not report any ear pain or history of ear problems. Denies any medication changes, other than she recently finished medications for trichomonal infection. Denies any vaginal bleeding and right now she is hemodynamically stable with unremarkable vitals. Denies any recent illness. No chest pain or shortness of breath. MD complaint: dizzy, nausea, abd cramping Onset (ago): month(s) Pain Consistency: constant Associated symptoms: Reports headache(s) and nausea; Deny chest pain, dyspnea, rash, palpitations or vomiting Related Data Home Medications ?Medication ?Instructions ?Recorded ?Confirmed acyclovir 400 mg tablet 400 mg PO BID 01/12/25 01/12/25 [id number] 250 2 tab PO Q6H PRN Headache 01/12/25 01/12/25 mg-250 mg-65 mg tablet (Excedrin Migraine) Previous Rx's ?Medication ?Instructions ?Recorded metformin 500 mg tablet 500 mg PO DAILY #90 tabs 10/19/24 Allergies Allergy/AdvReac Type Severity Reaction Status Date / Time nickel Allergy Intermediate rash Verified 10/19/24 08:15 Review of Systems General: Reports: 10 or more systems reviewed and unremarkable except in HPI and below Const: Denies: fever(s), chills or fatigue Eyes: Denies: change in vision ENMT: Denies: throat pain, ear or mastoid pain or nasal discharge Card: Reports: lightheadedness; Denies: chest pain, palpitations or swelling of feet/ankles Resp: Denies: dyspnea, productive cough or wheezing GI: Reports: abdominal pain, nausea and GI cramping; Denies: vomiting, diarrhea or constipation : Denies: flank pain, difficulty voiding, dysuria or urinary frequency Musc: Denies: neck pain, back pain or joint pain Skin/Breast: Denies: rash Neuro: Reports: headache(s) and dizziness; Denies: numbness in extremities, weakness in extremities, behavioral changes or Slurred speech present PFSH ED PFSH: Family History Denies family history of Colon cancer Ovarian cancer Diabetes Heart disease Breast cancer Hypertension Uterine cancer Thyroid disease Stroke Social History Smoking and tobacco/nicotine status: current every day tobacco/nicotine user Alcohol intake: current Alcohol intake frequency: few times a month Alcohol type: beer, wine and hard liquor Substance/Drug Use: unknown Lives independently: No Household members: family Marital status: Single Number of children: 1 service: No Current occupational status: unemployed Current gender identity: Female Special monique needs: No Physical Exam Const: COMMON NORMALS: patient oriented x3 GENERAL APPEARANCE: cooperative, well developed and anxious (Tearful) ORIENTATION/CONSCIOUSNESS: Yes awake, Yes oriented to person, Yes oriented to place and Yes oriented to time HENMT: COMMON NORMALS: normocephalic, atraumatic and hearing grossly normal bilaterally HEAD & SCALP: normocephalic and atraumatic Eye: COMMON NORMALS: Equal, round and reactive pupils present, EOMs intact bilaterally and conjunctivae normal CONJUNCTIVA: Yes conjunctivae normal PUPIL: Yes Equal, round and reactive pupils present Neck/C-Spine: COMMON NORMALS: full ROM, supple and no JVD Resp: COMMON NORMALS: normal respiratory effort, No retractions, No use of accessory muscles and clear to auscultation bilaterally AUSCULTATION: clear to auscultation bilaterally Cardio: COMMON NORMALS: no JVD, regular rate, regular rhythm, No clicks present (Cardio), No murmurs present (Cardio) and No rub (Cardio) RATE: regular rate RHYTHM: regular rhythm GI: COMMON NORMALS: Normal to inspection, nondistended, normoactive bowel sounds present, Soft to palpation and non-tender AUSCULTATION: Yes normoactive bowel sounds PALPATION: Yes Soft to palpation RECTAL EXAM: deferred Extremity: COMMON NORMALS: normal to inspection, full ROM and capillary refill normal Neuro: COMMON NORMALS: patient oriented x3, moves all extremities, no focal motor deficits and no sensory deficits noted SENSORIUM/ORIENTATION: Yes oriented to person, Yes oriented to place and Yes oriented to time Skin: COMMON NORMALS: no rashes or lesions noted GENERAL SKIN EXAM: no rashes or lesions noted Course Vital Signs: Vital signs: Vital Signs Temperature 98.8 F 01/12/25 12:15 Pulse Rate 64 01/12/25 16:38 Respiratory Rate 17 01/12/25 16:38 Blood Pressure 111/72 01/12/25 16:38 Pulse Oximetry 99 01/12/25 16:38 Oxygen Delivery Me thod Room Air 01/12/25 15:17 MDM - General Adult Medical Decision Making Patient presented complaining of dizziness been going on for months. No neurological deficit at time of examination, clinically appeared stable. Her lab workup was unremarkable, head CT did not show any acute abnormality. This is benign etiology, could represent vertigo she is instructed to take meclizine. Regardless she will follow-up with primary care for reevaluation if she continues to be symptomatic, she does note mild improvement after IV fluids and Benadryl here in the emergency department. Her headache has improved as well. Has remained stable will be discharged home. Lab Data 01/12/25 14:22 01/12/25 14:[address] 01/12/25 14:53 IMPRESSION: No acute intracranial abnormality. Laboratory Results WBC 12.28 10^3/uL (3.29-11.43) H 01/12/25 14:22 RBC 5.05 10^6/uL (3.85-5.65) 01/12/25 14:22 Hgb 15.70 g/dL (11.27-16.99) 01/12/25 14:22 Hct 46.8 % (36-47) 01/12/25 14:22 MCV 92.7 fl (85-98) 01/12/25 14:22 MCH 31.1 pg (27-33) 01/12/25 14:22 MCHC 33.5 g/dL (30-55) 01/12/25 14:22 RDW 12.5 % (12.1-15.1) 01/12/25 14:22 Plt Count 307 10^3/cmm (157-399) 01/12/25 14:22 MPV 10.3 fL (7.4-10.4) 01/12/25 14:22 Neut % (Auto) 74.4 % 01/12/25 14:22 Lymph % (Auto) 19.4 % 01/12/25 14:22 [place] % (Auto) 4.3 % 01/12/25 14:22 Eos % (Auto) 1.0 % 01/12/25 14:22 Baso % (Auto) 0.6 % 01/12/25 14:22 Neut # (Auto) 9.14 10^3/uL (1.8-7.7) H 01/12/25 14:22 Lymph # (Auto) 2.4 10^3/uL (0.8-4.8) 01/12/25 14:22 [place] # (Auto) 0.5 10^3/uL (0.2-0.9) 01/12/25 14:22 Eos # (Auto) 0.1 10^3/uL (0.0-0.8) 01/12/25 14:22 Baso # (Auto) 0.1 10^3/uL (0.0-0.1) 01/12/25 14:22 Nucleated RBC % (auto) 0 % 01/12/25 14:22 Nucleated RBCs # 0.0 /100WBC 01/12/25 14:22 Sodium 139 mmol/L (136-145) 01/12/25 14:22 Potassium 3.6 mmol/L (3.5-5.1) 01/12/25 14:22 Chloride 103 mmol/L (98-107) 01/12/25 14:22 Carbon Dioxide 22 mmol/L (22-29) 01/12/25 14:22 Anion Gap 17.6 (5-19) 01/12/25 14:22 BUN 11 mg/dL (6-20) 01/12/25 14:22 Creatinine 0.8 mg/dL (0.5-0.9) 01/12/25 14:22 GFR Calculation 86.0 mL/min (90-130) L 01/12/25 14:22 Glucose 85 mg/dL (65-115) 01/12/25 14:22 Calculated Osmolality 287 mOsm/kg (285-295) 01/12/25 14:22 Calcium 9.2 mg/dL (8.5-10.5) 01/12/25 14:22 Total Bilirubin 0.5 mg/dL (0.15-1.2) 01/12/25 14:22 AST 28 U/L (0-32) 01/12/25 14:22 ALT 26 U/L (0-33) 01/12/25 14:22 Alkaline Phosphatase 75 U/L (35-105) 01/12/25 14:22 Total Protein 7.7 g/dL (6.6-8.7) 01/12/25 14: Albumin 4.8 g/dL (3.5-5.2) 01/12/25 14: Globulin 2.9 g/dL (1.3-4.6) 01/12/25 14:22 HCG, Qual Negative (Negative) 01/12/25 14: Urine Color Yellow (Yellow) 01/12/25 12: Urine Appearance Clear (CLEAR) 01/12/25 12:33 Urine pH 5.5 (5-7) 01/12/25 12:33 Ur Specific [place] 1.020 (1.005-1.030) 01/12/25 12:33 Urine Protein Negative (Negative) 01/12/25 12:33 Urine Glucose (UA) Negative (Normal) 01/12/25 12:33 Urine Ketones 2+ (Negative) H 01/12/25 12:33 Urine Blood Negative (Negative) 01/12/25 12:33 Urine Nitrate Negative (Negative) 01/12/25 12:33 Urine Bilirubin Negative (Negative) 01/12/25 12:33 Urine Urobilinogen 0.2 mg/dL (Negative) 01/12/25 12:33 Ur Leukocyte Esterase Trace (Negative) A 01/12/25 12:33 Urine RBC 0-2 /hpf (0-2) 01/12/25 12:33 Urine WBC 0-5 /hpf (0-5) 01/12/25 12:33 Ur Squamous Epith Cells 0-5 /hpf (0-5) 01/12/25 12:33 Amorphous Sediment Not Reportable 01/12/25 12:33 Urine Bacteria None seen /hpf (NONE) 01/12/25 12:33 Hyaline Casts 1.21 /lpf 01/12/25 12:33 No radiology studies performed this visit Discharge Plan Discharge Patient Disposition: Home Clinical Impression: Dizziness Condition: Stable Prescriptions: No Action metformin 500 mg tablet 500 mg PO DAILY Qty: 90 3RF Rx Instructions: take once daily with dinner acyclovir 400 mg tablet 400 mg PO BID [id number] [Excedrin Migraine] 250-250-65 mg Tablet 2 tab PO Q6H PRN (Reason: Headache) Discharge Orders: Discharge ED (Routine); Ordered 01/12/25 Ordered By: Aman Covarrubias Referrals: Kay Appiah FNP [Primary Care Provider, Primary Care Provider] Patient Instructions: Patient Portal & Louis Instructions Activity Restrictions/Additional Instructions: Dizziness Discharge Instructions You came to the emergency department because of dizziness that has lasted for several months. After careful evaluation?including a head CT scan and blood tests?no serious or dangerous cause for your dizziness was found. What to expect: Your dizziness may be due to a condition called vertigo, which is a common cause of feeling off-balance or like things are spinning. Most cases improve over time. Medication: You may use ufje-ybh-rqippve meclizine (Antivert, Bonine) to help with your symptoms. Take 25?50 mg by mouth once daily as needed, but only for a few days. Do not use meclizine for longer than several days, as longer use can slow your recovery and may cause side effects like drowsiness, dry mouth, or trouble urinating. - Do not exceed the recommended dose. - Avoid alcohol and sedatives while taking meclizine, as these can increase drowsiness. - Do not drive or operate heavy machinery if you feel drowsy. - If you are or , consult your doctor before using meclizine. Other helpful tips: - If your dizziness is triggered by moving your head, certain exercises or maneuvers (like the Chey maneuver) may help. These are usually done with a healthcare provider, but you can ask your primary care provider about them at your follow-up. - Try to stay active and move as tolerated, as gentle movement can help your body adjust and recover. When to seek help: Return to the emergency department or call your doctor if you experience: - New or severe headache - Weakness, numbness, or trouble speaking - Loss of vision - Chest pain or shortness of breath - Fainting or trouble walking Follow-up: Please make an appointment with your primary care provider for reevaluation, especially if your symptoms do not improve or get worse. Further testing or referral to a specialist may be needed if symptoms persist. If you have any questions or concerns, do not hesitate to contact your healthcare provider. 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
[2025-01-12] MEDS: ondansetron 2 mg/ML SDV 2 mL 4 MG IVP (15:11)
[2025-01-12] MEDS: diphenhydrAMINE 50 mg/mL SDV 1mL IVP (15:11)
[2025-01-12 15:17] VITALS: BP 122/91; PULSE 66; RESP 17; O2SAT 99
[2025-01-12 15:31] LABS: Glucose Urine UA Negative (Normal); Nitrate Urine Negative (Negative); Specific Gravity, Urine 1.020 (1.005-1.030)
[2025-01-12 15:34] LABS: Add Urine Microscopic? YES
[2025-01-12 16:38] VITALS: BP 111/72; PULSE 64; RESP 17; O2SAT 99
== END 2025-01-12 16:39 | disposition home or self-care (01) ==
PROVIDERS: Emergency Provider Physician Assistant; PCP Nurse Practitioner Family
DX: R42 Dizziness and giddiness (principal); Z79.84 Long term (current) use of oral hypoglycemic drugs; Z79.82 Long term (current) use of aspirin; Z72.0 Tobacco use
CPT/HCPCS: 36415; 70450; 80053; 81001; 84703; 85025; 96374; 96375; 99285; J1100; J1200; J1885; J2405; J7040; J8597